=== PATIENT | male | born 1990 | race Caucasian/White ===

== ENCOUNTER 2016-03-24 22:55 | Emergency (ER) | payer BC ==
[2016-03-25] MEDS ORDERED: DILAUDID 1 MG/ML AMP ONE (02:08)
[2016-03-25] MEDS ORDERED: TDaP 0.5 ML VIAL IM.VACC ONE (02:09)
== END 2016-03-25 00:50 | disposition home or self-care (01) ==
LOC: ER 22:55
DX: S61.412A Laceration without foreign body of left hand, initial encounter (principal); W32.0XXA Accidental handgun discharge, initial encounter; Y92.009 Unspecified place in unspecified non-institutional (private) residence as the place of occurrence of the external cause; F17.210 Nicotine dependence, cigarettes, uncomplicated; Z23 Encounter for immunization
CPT/HCPCS: 90471; 96372